=== PATIENT | female | born 1995 | race Asian ===

== ENCOUNTER 2020-02-11 21:27 | Emergency (ER) | payer BC ==
[~2020-02-11] VITALS: Ht 167.6 cm; Wt 61.2 kg
--- NOTE | 2020-02-11 21:40 | NUR ---
ED Nurse Note: PT WALKED IN TO ED FROM HOME C/O DYSURIA AND NOTED MILD BLEEDING ONLY DURING URIATION SINCE 1999 TODAY. vss, nad. urine collected and sent to lab. chrissie at bedside
[2020-02-11 21:53] VITALS: BP 118/69
--- NOTE | 2020-02-11 22:00 | Emergency Room Report ---
History of Present Illness General Chief Complaint: Female Urogenital Problems Source: Patient Present Illness HPI Disclaimer: Please note that this report is being documented using DRAGON technology. This can lead to erroneous entry secondary to incorrect interpretation by the dictating instrument. HPI: 24-year-old female presents for evaluation of dysuria and hematuria. Symptoms began earlier today. She noted dark-colored urine approximately 1 hour ago but has been complaining of a burning sensation while urinating for the past 1 or 2 days. Denies abdominal or flank pain. Denies fever, chills, nausea, vomiting, diarrhea or constipation. LMP was 2 weeks ago. Does not typically bleed between periods. Denies trauma or injury of any kind. PMH: None reported PSH: None reported Allergies: None reported Social Hx: Denies drug or alcohol abuse Allergies: Coded Allergies: No Known Allergies (Unverified , 02/11/20) COVID-19 Screening Contact w/high risk pt: No Recent Travel to affected area: No Experienced COVID-19 symptoms?: No Patient History Last Menstrual Period: 01/25/2020 Now: No : 0 Para: 0 Nursing Documentation-PMH Past Medical History: No Stated History Review of Systems All Other Systems: negative except mentioned in HPI Physical Exam Vital Signs Date Time Temp Pulse Resp B/P (MAP) Pulse Ox O2 Delivery O2 Flow Rate FiO2 02/11/20 21:38 98.6 98 18 118/69 (85) 98 Room Air General: Awake and alert, no acute distress HEENT: NC/AT. EOMI. Resp: Normal work of breathing Abdomen: Soft, nontender, nondistended, no rebound, no masses. Skin: Intact. No abrasions, laceration or rash over the exposed skin MSK: Normal tone and bulk. Moving all extremities. No obvious deformity. Neuro: Awake and alert. Mentating appropriately Medical Decision Making Diagnostic Impression: Primary Impression: Hematuria Additional Impression: UTI (urinary tract infection) ER Course This is a otherwise healthy 24-year-old female presenting for evaluation of dysuria and hematuria. Differential includes without limited to cystitis, urethritis, UTI, pyelonephritis, kidney stone, ectopic to name a few. She is well-appearing with stable vital signs. Urinalysis consistent with acute urinary tract infection. Nitrates are positive. No evidence of pyelonephritis. hCG is negative. Will treat with Macrobid. First dose given in the emergency department. She will follow-up for the hematuria if it persists after antibiotic treatment. Discussed reasons to return to the emergency department. She understands and agrees with this treatment plan. Laboratory Tests Test 02/11/20 22:00 Urine Color Red Urine Appearance Very cloudy Urine pH 7 (4.5-8.0) Urine Specific [place] 1.010 (1.005-1.035) Urine Protein 3+ (NEGATIVE) H Urine Glucose (UA) Negative (NEGATIVE) Urine Ketones Negative (NEGATIVE) Urine Blood 5+ (NEGATIVE) H Urine Nitrite Positive (NEGATIVE) H Urine Bilirubin Negative (NEGATIVE) Urine Urobilinogen Normal MG/DL (0.0-1.0) Urine Leukocyte Esterase 3+ (NEGATIVE) H Urine RBC Tntc /HPF (0 - 2) H Urine WBC 5-10 /HPF (0 - 2) H Urine Squamous Epithelial Cells None /LPF (NONE/OCC) Urine Bacteria None /HPF (NONE) Urine HCG, Qualitative Negative (NEGATIVE) Last Vital Signs Date Time Temp Pulse Resp B/P (MAP) Pulse Ox O2 Delivery O2 Flow Rate FiO2 02/11/20 21:53 98.6 68 18 118/69 98 Room Air Disposition: HOME, SELF-CARE Condition: Stable Scripts Nitrofurantoin Monohyd/M-Cryst* (MACROBID 100 MG*) 100 Mg Capsule 100 MG ORAL EVERY 12 HOURS for 5 Days, CAP Prov: Jt Malhotra MD 02/11/20 Jt Malhotra MD Feb 11, 2020 22:00
[2020-02-11 22:17] LABS: APPEARANCE,URINE VERY CLOUDY; BILIRUBIN, URINE NEGATIVE (NEGATIVE); GLUCOSE, URINE (UA) NEGATIVE (NEGATIVE); KETONES,URINE NEGATIVE (NEGATIVE); LEUKOCYTE ESTERASE ,URINE 3+ (NEGATIVE); NITRITE,URINE POSITIVE (NEGATIVE); PH,URINE 7 (4.5-8.0); PROTEIN,URINE 3+ (NEGATIVE); UROBILINOGEN,URINE NORMAL MG/DL (0.0-1.0)
[2020-02-11 22:18] LABS: COLOR,URINE RED
[2020-02-11] MEDS ORDERED: NITROFURANTOIN100 M2 ORAL (22:30)
[2020-02-11 22:35] VITALS: BP 118/69
--- NOTE | 2020-02-11 22:35 | NUR ---
ER DISCHARGE NOTE: Patient is cleared to be discharged per ERMD, pt is aox4, on room air, with stable vital signs. pt was given dc and prescription instructions, pt was able to verbalize understanding, pt id band removed without complications. pt is able to ambulate with steady gait. pt took all belongings.
--- NOTE | 2020-02-11 22:39 | NUR ---
ED Nurse Note: Pt cleared by health care Provider for discharge. DC instructions/prescription was given and explained to pt and verbalized understanding of teachings. All medical deviecs such as ID band removed. Pt is AAO x4, ambulatory and left with all personal belongings.
== END 2020-02-11 22:49 | disposition home or self-care (01) ==
LOC: EMR 22:49
DX: R31.9 Hematuria, unspecified (principal); N39.0 Urinary tract infection, site not specified
CPT/HCPCS: 81003; 81025; 99283